=== PATIENT | male | born 1975 | race Caucasian/White ===

== ENCOUNTER 2016-10-29 11:04 | Emergency (ER) | payer OTHER, MEDICAID ==
[~2016-10-29] VITALS: Wt 72.0 kg
[~2016-10-29 11:04] MED LIST: AMITRIPTYLINE; CLON2TAB3; GABA300C16; SERTRALINE
[2016-10-29] MEDS ORDERED: RISPERIDONE 2 MG TAB PO ONE (11:30)
[2016-10-29 11:37] LABS: ADD SCAN DIFF NO
[2016-10-29 11:44] LABS: BASOPHIL # 0.1 10^3/ul (0.0-0.1); BASOPHILS % 0.5 % (0.0-2.0); EOSINOPHILS # 0.5 10^3/ul (0.0-0.5); EOSINOPHILS % 4.8 % (0.0-7.0); HEMATOCRIT 47.9 % (42.0-52.0); HEMOGLOBIN 16.1 g/dl (14.0-18.0); LYMPHOCYTES # 1.2 10^3/ul (0.8-2.9); LYMPHOCYTES % 12.7 % (15.0-51.0); MEAN CORPUSCULAR HEMOGLOBIN 30.7 pg (29.0-33.0); MEAN CORPUSCULAR HGB CONC 33.6 g/dl (32.0-37.0); MEAN CORPUSCULAR VOLUME 91.4 fl (82.0-101.0); MEAN PLATELET VOLUME 10.5 fl (7.4-10.4); MONOCYTE # 0.6 10^3/ul (0.3-0.9); MONOCYTES % 5.9 % (0.0-11.0); NEUTROPHIL # 7.1 10^3/ul (1.6-7.5); NEUTROPHILS % 74.4 % (39.0-77.0); PLATELET COUNT 238 10^3/UL (140-415); RED BLOOD COUNT 5.24 10^6/ul (4.70-6.10); RED CELL DISTRIBUTION WIDTH 13.3 % (11.5-14.5); WHITE BLOOD COUNT 9.5 10^3/ul (4.8-10.8)
[2016-10-29 12:00] LABS: ALBUMIN 5.5 g/dl (3.3-4.9)
[2016-10-29 12:01] LABS: CHLORIDE 103 mmol/L (97-110); POTASSIUM 4.1 mmol/L (3.5-5.1); SODIUM 144 mmol/L (135-144)
[2016-10-29 12:03] LABS: ALANINE AMINOTRANSFERASE 43 IU/L (13-69); ALBUMIN/GLOBULIN RATIO 1.48; ALKALINE PHOSPHATASE 98 IU/L (42-121); ANION GAP 19 (8-16); ASPARTATE AMINO TRANSFERASE 31 IU/L (15-46); BILIRUBIN,INDIRECT 0.4 mg/dl (0-1.1); BILIRUBIN,TOTAL 0.4 mg/dl (0.2-1.3); BLOOD UREA NITROGEN 15 mg/dl (7-20); CARBON DIOXIDE 26 mmol/L (21-31); GLUCOSE 127 mg/dl (70-220); TOTAL PROTEIN 9.2 g/dl (6.1-8.1)
[2016-10-29 12:04] LABS: CALCIUM 9.9 mg/dl (8.4-10.2)
[2016-10-29 12:07] LABS: ACETAMINOPHEN < 10.0 ug/ml (10.0-30.0); ETHANOL < 10.0 mg/dl; SALICYLATE < 1.0 mg/dl (5.0-30.0)
[2016-10-29 12:09] LABS: ADD UMIC YES; URINE BILIRUBIN (Dip) 1+ (NEGATIVE); URINE BLOOD (Dip) NEGATIVE (NEGATIVE); URINE COLOR YELLOW (YELLOW); URINE KETONES (Dip) NEGATIVE (NEGATIVE); URINE LEUKOCYTE ESTERASE (Dip) NEGATIVE (NEGATIVE); URINE NITRITE (Dip) NEGATIVE (NEGATIVE); URINE TOTAL PROTEIN (Dip) 1+ (NEGATIVE); URINE UROBILINOGEN (Dip) 0.2 E.U./dL (0.1-1.0)
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
[2016-10-29] MEDS ORDERED: SERT100T PO (12:21)
[2016-10-29] MEDS ORDERED: CLON0.5T4 PO (12:21)
[2016-10-29] MEDS ORDERED: ATEN-51 PO (12:21)
[2016-10-29 12:22] LABS: BARBITURATES Negative (NEGATIVE); BENZODIAZEPINES Negative (NEGATIVE)
[2016-10-29 12:24] LABS: CANNABINOIDS Negative (NEGATIVE); COCAINE Negative (NEGATIVE); OPIATES Negative (NEGATIVE)
[2016-10-29] MEDS ORDERED: BUPR300T48 PO (12:24)
[2016-10-29 12:25] LABS: ICTOTEST NEGATIVE (NEGATIVE)
[2016-10-29 12:26] LABS: BACTERIA,URINE FEW; URINE RBCS NONE SEEN /HPF (0)
[2016-10-29] MEDS ORDERED: OXCA300T3 PO (12:28)
[2016-10-29] MEDS ORDERED: METH500T PO (12:30)
[2016-10-29] MEDS ORDERED: OLANZAPINE (ODT) 5 MG TAB ODT STA (12:39)
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
[2016-10-29 18:01] VITALS: BP 108/75; PULSE 63; RESP 16; TEMP 98.6
== END 2016-10-29 18:02 ==
LOC: E/R 11:04
DX: F29 Unspecified psychosis not due to a substance or known physiological condition (principal); E11.9 Type 2 diabetes mellitus without complications; Z87.891 Personal history of nicotine dependence
CPT/HCPCS: 36415; 80053; 80306; 80307; 81001; 81003; 85025

== ENCOUNTER 2017-03-19 16:46 | Emergency (ER) | payer OTHER, MEDICAID ==
[~2017-03-19] VITALS: Ht 167.6 cm; Wt 70.0 kg
[~2017-03-19 16:46] MED LIST changes: -AMITRIPTYLINE; +ATEN-51 PO; +BUPR300T48 PO; +CLON0.5T4 PO; -CLON2TAB3; -GABA300C16; +METH500T PO; +OXCA300T3 PO; +SERT100T PO; -SERTRALINE
[2017-03-19] MEDS ORDERED: HALOPERIDOL 5 MG INJ IM STA (16:54)
[2017-03-19] MEDS ORDERED: LORAZEPAM 2 MG INJ IM ONE (17:00)
[2017-03-19] MEDS ORDERED: DIPHENHYDRAMINE 50 MG INJ IM ONE (17:00)
[2017-03-19 17:23] VITALS: Ht 167.6 cm; Wt 70.0 kg
[2017-03-19 18:01] LABS: BASOPHILS % 0.5 % (0.0-2.0); EOSINOPHILS # 0.4 10^3/ul (0.0-0.5); EOSINOPHILS % 5.4 % (0.0-7.0); HEMATOCRIT 43.8 % (42.0-52.0); HEMOGLOBIN 15.3 g/dl (14.0-18.0); LYMPHOCYTES % 14.5 % (15.0-51.0); MEAN CORPUSCULAR HEMOGLOBIN 31.3 pg (29.0-33.0); MEAN CORPUSCULAR HGB CONC 34.9 g/dl (32.0-37.0); MEAN CORPUSCULAR VOLUME 89.6 fl (82.0-101.0); MONOCYTE # 0.5 10^3/ul (0.3-0.9); MONOCYTES % 7.9 % (0.0-11.0); NEUTROPHIL # 4.7 10^3/ul (1.6-7.5); NEUTROPHILS % 70.8 % (39.0-77.0); PLATELET COUNT 195 10^3/UL (140-415); RED BLOOD COUNT 4.89 10^6/ul (4.70-6.10); RED CELL DISTRIBUTION WIDTH 12.7 % (11.5-14.5); WHITE BLOOD COUNT 6.6 10^3/ul (4.8-10.8)
[2017-03-19 18:16] LABS: INR 0.97; PROTIME 12.9 Sec (12.2-14.2)
[2017-03-19 18:17] LABS: PARTIAL THROMBOPLASTIN TIME 29.2 Sec (25.0-35.0)
[2017-03-19 18:19] LABS: ALANINE AMINOTRANSFERASE 55 IU/L (13-69); ALBUMIN 5.1 g/dl (3.3-4.9); ALBUMIN/GLOBULIN RATIO 1.54; ALKALINE PHOSPHATASE 99 IU/L (42-121); ANION GAP 15 (8-16); ASPARTATE AMINO TRANSFERASE 35 IU/L (15-46); BILIRUBIN,INDIRECT 0.3 mg/dl (0-1.1); BILIRUBIN,TOTAL 0.3 mg/dl (0.2-1.3); BLOOD UREA NITROGEN 13 mg/dl (7-20); CALCIUM 10.1 mg/dl (8.4-10.2); CARBON DIOXIDE 25 mmol/L (21-31); CHLORIDE 100 mmol/L (97-110); CREATININE 0.95 mg/dl (0.61-1.24); GLUCOSE 100 mg/dl (70-220); POTASSIUM 4.1 mmol/L (3.5-5.1); SODIUM 136 mmol/L (135-144); TOTAL PROTEIN 8.4 g/dl (6.1-8.1)
[2017-03-19 18:28] LABS: ACETAMINOPHEN < 10.0 ug/ml (10.0-30.0); ETHANOL < 10.0 mg/dl; SALICYLATE < 1.0 mg/dl (5.0-30.0)
[2017-03-19 19:03] LABS: ADD UMIC YES; UR AMORPHOUS CRYSTAL FEW /HPF (NONE SEEN); UR ASCORBIC ACID NEGATIVE (NEGATIVE); UR BILIRUBIN (Dip) 1+ mg/dL (NEGATIVE); UR BLOOD (Dip) NEGATIVE (NEGATIVE); UR CLARITY SLIGHTLY CLOUDY (CLEAR); UR COLOR YELLOW (YELLOW); UR GLUCOSE (Dip) NEGATIVE (NEGATIVE); UR KETONES (Dip) NEGATIVE (NEGATIVE); UR LEUKOCYTE ESTERASE (Dip) NEGATIVE Leu/ul (NEGATIVE); UR MUCUS FEW /HPF (NONE SEEN); UR NITRITE (Dip) NEGATIVE (NEGATIVE); UR RBC 2 /HPF (0-5); UR SPECIFIC GRAVITY (Dip) 1.027 (1.003-1.030); UR TOTAL PROTEIN (Dip) 1+ mg/dl (NEGATIVE); UR UROBILINOGEN (Dip) 1+ mg/dL (NEGATIVE)
[2017-03-19 19:25] LABS: OPIATES Negative (NEGATIVE)
[2017-03-19 19:32] LABS: BENZODIAZEPINES Positive (NEGATIVE)
[2017-03-19 19:33] LABS: BARBITURATES Negative (NEGATIVE); CANNABINOIDS Negative (NEGATIVE); COCAINE Negative (NEGATIVE)
--- NOTE | 2017-03-19 21:18 | ERA ---
ER Documentation Chief Complaint Date/Time DATE: 03/19/17 TIME: 21:14 Chief Complaint PT BIB RA WITH [employer] FOR EVAL OF POSSIBLE OD ON PILLS. PT AGITATED HPI 41-year-old male with a known history of bipolar that was brought into the emergency department by EMS as his mother state he became very aggressive and they got in a verbal altercation. She stated the patient was speaking nonsensical words. When EMS arrived as well as [employer] the patient stated that he had taken a large number of his pills but was unable to indicate which medication he had taken or quantify how much medication he had taken. He stated he took a few tablets of the pills roughly 1 hour prior to arrival. The patient is unable to indicate why he took the pills but stated he did not want to hurt himself. Patient had no chest pain or pressure that radiates to the neck or back or jaw. He denied any suicidal homicidal thoughts or ideations. He denies any shortness of breath. He denies any hemoptysis hematemesis or melanotic stools. ROS All systems reviewed and are negative except as per history of present illness. Medications Home Meds Reported Medications Methocarbamol* (Robaxin*) 500 Mg Tab, 500 MG PO Q8, TAB 10/29/16 Oxcarbazepine* (Trileptal*) 300 Mg Tablet, 900 MG PO BID, TAB 10/29/16 Bupropion Hcl* (Wellbutrin XL*) 300 Mg Tab.sr.24h, 300 MG PO QAM, TAB.SA 10/29/16 Sertraline Hcl* (Zoloft*) 100 Mg Tablet, 200 MG PO DAILY, #60 TAB 10/29/16 Atenolol* (Atenolol*) 25 Mg Tablet, 25 MG PO DAILY, #30 TAB 10/29/16 Clonazepam* (Clonazepam*) 0.5 Mg Tablet, 0.5 MG PO DAILY Y for ANXIETY, TAB 10/29/16 Allergies Allergies: Coded Allergies: No Known Drug Allergies (Verified Allergy, Mild, 06/10/10) PMhx/Soc History of Surgery: No Anesthesia Reaction: No Hx Neurological Disorder: No Hx Respiratory Disorders: No Hx Cardiac Disorders: No Hx Psychiatric Problems: Yes (post traumatic stress,schizoaffective bipolar disorder) Hx Miscellaneous Medical Probl: No Hx Alcohol Use: No Hx Substance Use: No Hx Tobacco Use: Yes Smoking Status: Never smoker Physical Exam Vitals Vital Signs Date Time Temp Pulse Resp B/P Pulse Ox O2 Delivery O2 Flow Rate FiO2 03/19/17 18:30 69 18 106/54 99 Room Air 03/19/17 18:15 98.0 90 19 95/52 100 03/19/17 18:00 97.1 100 16 110/72 100 03/19/17 17:45 97.6 101 16 103/52 100 03/19/17 17:30 97.9 103 16 105/68 99 03/19/17 17:23 97.6 117 16 114/69 100 Physical Exam Constitutional:Well-developed. Well-nourished. HEENT:Normocephalic. Atraumatic.Pupils were equal round reactive to light. Moist mucous membranes.No tonsillar exudates. Nasal septal hematoma. No hemotympanum Neck: No nuchal rigidity. No lymphadenopathy. No posterior cervical spine tenderness or step-offs. Respiratory: Not using accessory muscles of respiration.Lungs were clear to auscultation bilaterally. No rhonchi. No rales. No wheezing. Cardiovascular: Regular rate regular rhythm.No murmurs. No rubs were appreciated.S1, S2 normal. Distal pulses are palpable 2+ bilaterally. GI: Abdomen was soft. Nontender. Non Distended. No pulsatile abdominal masses or bruits. No rebound. No guarding. Bowel sounds were present and normal. Muscle skeletal: Full range of motion of both the upper and lower extremities bilaterally.Normal muscle tone.No assymetrical calf tenderness or swelling. Skin: No petechia, no purpura. No lesions on the palms or the soles of the feet. No maculopapular rash. NEURO: Patient was alert, awake, orientated to person but not to place or time. Patient had bizarre thoughts and tangential thinking and appeared paranoid. Did not answer questions appropriately. Gait was observed and normal there is no ataxia. He was experiencing auditory hallucinations with no visual or tactile hallucinations and no suicidal or homicidal thoughts or ideations Result Diagram: 03/19/17 1750 03/19/17 1750 Results 24 hrs Laboratory Tests Test 03/19/17 17:50 03/19/17 18:45 White Blood Count 6.610^3/ul Red Blood Count 4.8910^6/ul Hemoglobin 15.3g/dl Hematocrit 43.8% Mean Corpuscular Volume 89.6fl Mean Corpuscular Hemoglobin 31.3pg Mean Corpuscular Hemoglobin Concent 34.9g/dl Red Cell Distribution Width 12.7% Platelet Count 87768^3/UL Mean Platelet Volume 11.0fl Neutrophils % 70.8% Lymphocytes % 14.5% Monocytes % 7.9% Eosinophils % 5.4% Basophils % 0.5% Nucleated Red Blood Cells % 0.0/100WBC Neutrophils # 4.710^3/ul Lymphocytes # 1.010^3/ul Monocytes # 0.510^3/ul Eosinophils # 0.410^3/ul Basophils # 0.010^3/ul Nucleated Red Blood Cells # 0.010^3/ul Prothrombin Time 12.9Sec Prothrombin Time Ratio 1.0 INR International Normalized Ratio 0.97 Activated Partial Thromboplast Time 29.2Sec Sodium Level 136mmol/L Potassium Level 4.1mmol/L Chloride Level 100mmol/L Carbon Dioxide Level 25mmol/L Anion Gap 15 Blood Urea Nitrogen 13mg/dl Creatinine 0.95mg/dl Glucose Level 100mg/dl Calcium Level 10.1mg/dl Total Bilirubin 0.3mg/dl Direct Bilirubin 0.00mg/dl Indirect Bilirubin 0.3mg/dl Aspartate Amino Transf (AST/SGOT) 35IU/L Alanine Aminotransferase (ALT/SGPT) 55IU/L Alkaline Phosphatase 99IU/L Total Protein 8.4g/dl Albumin 5.1g/dl Globulin 3.30g/dl Albumin/Globulin Ratio 1.54 Salicylates Level < 1.0mg/dl Acetaminophen Level < 10.0ug/ml Ethyl Alcohol Level < 10.0mg/dl Urine Color YELLOW Urine Clarity SLIGHTLY CLOUDY Urine pH 6.0 Urine Specific [place] 1.027 Urine Ketones NEGATIVEmg/dL Urine Nitrite NEGATIVEmg/dL Urine Bilirubin 1+mg/dL Urine Urobilinogen 1+mg/dL Urine Leukocyte Esterase NEGATIVELeu/ul Urine Microscopic RBC 2/HPF Urine Microscopic WBC 2/HPF Urine Amorphous Crystals FEW/HPF Urine Mucus FEW/HPF Urine Hemoglobin NEGATIVEmg/dL Urine Glucose NEGATIVEmg/dL Urine Total Protein 1+mg/dl Urine Opiates Screen Negative Urine Barbiturates Negative Urine Amphetamines Screen Negative Urine Benzodiazepines Screen Positive Urine Cocaine Screen Negative Urine Cannabinoids Negative Current Medications Medications (Trade) Dose Ordered Sig/Myn[place] Route PRN Reason Start Time Stop Time Status Last Admin Dose Admin Haloperidol (Haldol) 5 mg ONCE STAT IM 03/19/17 16:54 03/19/17 16:56 DC 03/19/17 17:14 Lorazepam (Ativan) 2 mg ONCE ONCE IM 03/19/17 17:00 03/19/17 17:01 DC 03/19/17 17:14 Diphenhydramine HCl (Benadryl) 50 mg ONCE ONCE IM 03/19/17 17:00 03/19/17 17:01 DC 03/19/17 17:15 Procedures/MDM This patient presented to the emergency department with acute psychosis and my differential diagnosis included but was not limited to ruling out life threatening causes of acute psychosis such as Wernickes encephalopathy, hypoxia , hypoglycemia, hypertensive encephalopathy, intracerebral hemorrhage, meningitis, poisoning. After my evaluation and workup on the patient I was able to exclude medical and reversible causes of the patients psychosis. It was my clinical impression the patients symptoms were an exacerbation of his psychiatric disorder; therefore, the patient was medically cleared by myself at this time for psychiatric evaluation and possible transfer. The patient did become severely agitated during medical assessment. Reassurance and verbal de-escalation were unsuccessful in calming the patient down. The agitation was impeding medical evaluation and treatment, with potential for the patient to harm themselves or others; therefore, pharmacological sedation was required occluded IM Haldol Ativan and Benadryl. Toxicology screen was positive for benzodiazepines. The patient will be seen by the telemetry psychiatrist for suspected acute exacerbation of his psychiatric disorder. Departure Diagnosis: Primary Impression: Psychosis Qualified Code: F29 - Psychosis, unspecified psychosis type Condition: Serious ANTHONY BLOOD Mar 19, 2017 21:18
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
--- NOTE | 2017-03-20 05:31 | QN ---
Documentation Comment Observation Note: Time: 4 hours Family Hx: No Hypertension Evaluation: Multiple exams showed improving symptoms and no evidence of [ decreasing mental status MADYSON MOSS Mar 20, 2017 05:31
[2017-03-20 12:40] VITALS: BP 119/73; PULSE 87; RESP 16; TEMP 98.2
== END 2017-03-20 12:46 ==
LOC: E/R 16:46
DX: F29 Unspecified psychosis not due to a substance or known physiological condition (principal); R40.2252 Coma scale, best verbal response, oriented, at arrival to emergency department; R40.2142 Coma scale, eyes open, spontaneous, at arrival to emergency department; R40.2362 Coma scale, best motor response, obeys commands, at arrival to emergency department
CPT/HCPCS: 80053; 80306; 80307; 81001; 85025; 85610; 85730; J1200; J1630; J2060; 96372